=== PATIENT | female | born 1985 | race Caucasian/White ===

== ENCOUNTER 2021-03-25 13:42 | Outpatient (CLI) | payer OTHER ==
[2021-03-25] VITALS (7 sets, daily range): BP systolic 108–167; BP diastolic 57–87
[~2021-03-25] VITALS: Ht 185.4 cm; Wt 103.3 kg
[2021-03-25] MEDS ORDERED: PRENTAB9 PO (14:06)
--- NOTE | 2021-03-25 15:35 | IPNPDOC ---
Text Note Date of Service The patient was seen on 03/25/21. NOTE Labor and Delivery Triage Note: S: 35-year-old 4 para 3 at 37 weeks 5 days presents with c/o bloody show. Denies regular contractions, vaginal bleeding or LOF. Reports active movement. Patient presents as unregistered patient being seen at the center for gastroschisis. O: vss, AF no ctx Cat 1 tracing Gen: well appearing, NAD Abd: gravid, soft, nttp cx: 1 cm/long A/P: 35-year-old 4 para 3 at 37 weeks 5 days not in labor reassuring status -home with PTL precautions and FKCs. -f/u at next OB appt Michelle Eric MD VS,Litzy, I+O VSLitzy, I+O Vital Signs Date Time Temp Pulse Resp B/P (MAP) Pulse Ox O2 Delivery O2 Flow Rate FiO2 03/25/21 15:01 98.2 70 18 136/77 (96) MICHELLE ERIC MD. Mar 25, 2021 15:35
== END 2021-03-25 15:20 | disposition home or self-care (01) ==
LOC: M LDO 13:42
PROVIDERS: ATTEND Obstetrics & Gynecology
DX: O46.93 Antepartum hemorrhage, unspecified, third trimester (principal); Z3A.37 37 weeks gestation of pregnancy; O09.523 Supervision of elderly multigravida, third trimester; Z88.0 Allergy status to penicillin
CPT/HCPCS: 59025; G0378; G0463

== ENCOUNTER 2021-03-26 08:25 | Inpatient (IN) | payer OTHER ==
[2021-03-26] VITALS (25 sets, daily range): BP systolic 112–149; BP diastolic 58–110
[~2021-03-26] VITALS: Ht 185.4 cm; Wt 103.3 kg
[~2021-03-26 08:25] MED LIST: PRENTAB9 PO
[2021-03-26] MEDS ORDERED: HOME MED LIST COMPLETE! XX SCH (08:55)
[2021-03-26] MEDS ORDERED: * PENDING VANCOMYCIN ENTRY XX SCH (09:00)
[2021-03-26] MEDS ORDERED: OXYTOCIN 30 UNITS IN 0.9% NaCl 500ML IV BAG (J2590) As Ordered ONE (09:01)
[2021-03-26 09:06] LABS: HEMATOCRIT 40.4 % (36.0-47.0); HEMOGLOBIN 13.1 g/dl (12.0-15.5); MEAN CORPUSCULAR HEMOGLOBIN 28.5 pg (27.0-33.0); MEAN CORPUSCULAR HGB CONC 32.4 g/dl (32.0-36.5); PLATELET COUNT, AUTOMATED 247 10^3/uL (150-450); RED BLOOD COUNT 4.59 10^6/uL (4.00-5.40); WHITE BLOOD COUNT 10.9 10^3/uL (4.0-10.0)
[2021-03-26] MEDS ORDERED: FENTANYL 2MCG/ML ROPIVACAINE 0.2% IN 0.9% NACL 100ML IVBAG As Ordered ONE (09:22)
[2021-03-26] MEDS ORDERED: LACTATED RINGER'S 1000 ML IV STA (09:29)
[2021-03-26] MEDS ORDERED: VANCOMYCIN HCL 1,000 MG, VIAL MATE ADAPTER 1 EACH in NS 250 ML IV SCH ×2 (09:30→10:00)
[2021-03-26] MEDS ORDERED: LR 1,000 ML IV SCH (09:30)
[2021-03-26] MEDS ORDERED: VANCOMYCIN 1000MG/20ML VIAL As Ordered ONE (09:40)
[2021-03-26] MEDS ORDERED: FENTANYL/ROPIVACAINE/NACL BAG 100 ML EPIDURAL SCH (09:45)
[2021-03-26] MEDS ORDERED: ePHEDrine SULFATE 25 MG/5 ML(5MG/ML) SYRINGE IV PRN (09:45)
[2021-03-26] MEDS ORDERED: diphenhydrAMINE 50MG/ML VIAL (J1200) IV PRN (09:45)
[2021-03-26] MEDS ORDERED: REFRIGERATOR IV KEYS XX PRN (09:45)
[2021-03-26] MEDS ORDERED: ONDANSETRON 4MG/2ML VIAL IV PRN (09:45)
[2021-03-26] MEDS ORDERED: EPIDURAL/PCA KEYS XX PRN (09:45)
[2021-03-26] MEDS ORDERED: NALOXONE INJ 0.4MG/1ML VIAL (J2310 PER 1MG) IV PRN (09:45)
[2021-03-26] MEDS ORDERED: LACTATED RINGER'S 1000 ML IV PRN (09:45)
[2021-03-26] MEDS ORDERED: EPIDURAL COMMENT XX SCH (09:45)
[2021-03-26 10:48] LABS: CORD GAS HCO3 V 20.7 MEQ/L; CORD GAS O2 SAT V 79.9 %; CORD GAS PCO2 V 32.8 mmHg; CORD GAS PH V 7.417 UNITS; CORD GAS PO2 V 35.9 mmHg; CORD GAS SBC V 21.6 MEQ/L; CORD GAS TCO2 V 21.7 MEQ/L
[2021-03-26 10:50] LABS: CORD GAS ABE A -1.5; CORD GAS HCO3 A 26.2 MEQ/L; CORD GAS PCO2 A 58.7 mmHg; CORD GAS PH A 7.268 UNITS
[2021-03-26 10:51] LABS: CORD GAS PO2 A < 10.0 mmHg
[2021-03-26] MEDS ORDERED: OXYTOCIN DRIP 30 UNITS in IV 1 EA IV SCH (11:15)
[2021-03-26] MEDS ORDERED: ACETAMINOPHEN TAB 650MG DOSE (2X325MG) PO PRN (11:15)
[2021-03-26] MEDS ORDERED: ACETAMINOPHEN 500 MG TAB PO PRN (11:15)
[2021-03-26] MEDS ORDERED: DIBUCAINE 1% OINTMENT 30GM TOP PRN (11:15)
[2021-03-26] MEDS ORDERED: MEASLES,MUMPS,RUBELLA VACCINE INJ (MMR-II) (90707) SC SCH (11:15)
[2021-03-26] MEDS ORDERED: DOCUSATE SODIUM 100MG CAPSULE PO PRN (11:15)
[2021-03-26] MEDS ORDERED: IBUPROFEN 600MG TAB PO PRN (11:15)
[2021-03-26] MEDS ORDERED: METHYLERGONOVINE MALEATE 0.2 MG TAB PO PRN (11:15)
[2021-03-26] MEDS ORDERED: MOM 30ML SUSPENSION UDC PO PRN (11:15)
[2021-03-26] MEDS ORDERED: RHOGAM 300 MCG (1500 IU) INJ (J2790) IM SCH (11:15)
[2021-03-26] MEDS: IBUPROFEN 800 MG TAB PO PRN (16:55)
[2021-03-26] MEDS: PRENATAL VITAMINS CHEWABLE TABLET PO SCH (19:45)
[2021-03-27 06:00] VITALS: BP 117/73
[2021-03-27] MEDS ORDERED: ACET-683 PO (06:58)
[2021-03-27] MEDS ORDERED: IBUP80TA PO (06:58)
[2021-03-27] MEDS: PRENATAL VITAMINS CHEWABLE TABLET PO SCH (10:04)
[2021-03-27] MEDS: IBUPROFEN 800 MG TAB PO PRN (10:05)
== END 2021-03-27 10:12 | disposition home or self-care (01) | DRG 807 ==
LOC: M LDO 08:25 → M LDI 08:31 → M OBS 14:08
PROVIDERS: ADMIT Obstetrics & Gynecology; ATTEND Obstetrics & Gynecology
PROC: 10E0XZZ Delivery of Products of Conception, External Approach (ICD-10-PCS; principal; 2021-03-26)
DX: O77.0 Labor and delivery complicated by meconium in amniotic fluid (principal); Z37.0 Single live birth; Z3A.37 37 weeks gestation of pregnancy

== ENCOUNTER → 2023-03-22 | Outpatient (REF) | payer OTHER ==
[~2023-03-22] MED LIST changes: +ACET-683 PO; +IBUP80TA PO
== END ==
LOC: M LAB REF 16:05
PROVIDERS: ATTEND Nurse Practitioner Family
DX: R30.0 Dysuria (principal); N39.0 Urinary tract infection, site not specified

== ENCOUNTER → 2023-07-09 | Outpatient (REF) | payer OTHER | LOC: M LAB REF 16:34 | PROVIDERS: ATTEND Nurse Practitioner Family | DX: R30.0 Dysuria (principal) ==

== ENCOUNTER → 2023-10-25 | Outpatient (REF) | payer OTHER | LOC: M LAB REF 09:04 | PROVIDERS: ATTEND Physician Assistant | DX: R30.0 Dysuria (principal) ==

== ENCOUNTER → 2024-03-24 | Outpatient (CLI) | payer OTHER ==
[2024-03-24 15:34] LABS: HEMATOCRIT 41.8 % (36.0-47.0); HEMOGLOBIN 13.6 g/dl (12.0-15.5); MEAN CORPUSCULAR HEMOGLOBIN 28.8 pg (27.0-33.0); MEAN CORPUSCULAR HGB CONC 32.5 g/dl (32.0-36.5); MEAN CORPUSCULAR VOLUME 88.6 fl (80.0-96.0); PLATELET COUNT, AUTOMATED 235 10^3/uL (150-450); RED BLOOD COUNT 4.72 10^6/uL (4.00-5.40); WHITE BLOOD COUNT 9.1 10^3/uL (4.0-10.0)
[2024-03-24 16:38] LABS: HIV 1&2 SCREEN NEGATIVE (NEGATIVE)
[2024-03-24 16:52] LABS: HEPATITIS C VIRUS ABY INDEX < 0.02 INDEX (<0.8)
[2024-03-24 17:01] LABS: GC DNA AMPLIFICATION NEGATIVE (NEGATIVE)
== END ==
LOC: M PLALAB 13:07
PROVIDERS: ATTEND Specialist
DX: Z34.83 Encounter for supervision of other normal pregnancy, third trimester (principal)

== ENCOUNTER → 2024-04-23 | Outpatient (CLI) | payer OTHER | LOC: M PLALAB 10:25 | PROVIDERS: ATTEND Advanced Practice Midwife | DX: O09.529 Supervision of elderly multigravida, unspecified trimester (principal); Z3A.00 Weeks of gestation of pregnancy not specified ==

== ENCOUNTER → 2024-05-26 | Outpatient (CLI) | payer OTHER | LOC: M WHC 07:21 | PROVIDERS: ATTEND Advanced Practice Midwife | DX: O09.522 Supervision of elderly multigravida, second trimester (principal); Z3A.20 20 weeks gestation of pregnancy; O32.2XX0 Maternal care for transverse and oblique lie, not applicable or unspecified ==

== ENCOUNTER → 2024-06-18 | Outpatient (CLI) | payer OTHER | LOC: M WHC 13:40 | PROVIDERS: ATTEND Advanced Practice Midwife | DX: Z36.2 Encounter for other antenatal screening follow-up (principal); Z3A.23 23 weeks gestation of pregnancy ==

== ENCOUNTER → 2024-07-03 | Outpatient (CLI) | payer OTHER ==
[2024-07-03 14:27] LABS: HEMATOCRIT 38.1 % (36.0-47.0); HEMOGLOBIN 12.3 g/dl (12.0-15.5); MEAN CORPUSCULAR HEMOGLOBIN 29.3 pg (27.0-33.0); MEAN CORPUSCULAR HGB CONC 32.3 g/dl (32.0-36.5); MEAN CORPUSCULAR VOLUME 90.7 fl (80.0-96.0); PLATELET COUNT, AUTOMATED 225 10^3/uL (150-450); WHITE BLOOD COUNT 8.6 10^3/uL (4.0-10.0)
[2024-07-03 14:52] LABS: GLUCOSE CHALLENGE TEST 1 HOUR 100 MG/DL (LESS THAN 140)
[2024-07-03 15:26] LABS: HIV 1&2 SCREEN NEGATIVE (NEGATIVE)
[2024-07-03 15:29] LABS: GC DNA AMPLIFICATION NEGATIVE (NEGATIVE)
[2024-07-03 15:35] LABS: HEPATITIS C VIRUS ABY INDEX < 0.02 INDEX (<0.8)
== END ==
LOC: M PLALAB 09:09
PROVIDERS: ATTEND Obstetrics & Gynecology
DX: O09.522 Supervision of elderly multigravida, second trimester (principal); Z3A.00 Weeks of gestation of pregnancy not specified

== ENCOUNTER → 2024-09-16 | Outpatient (REF) | payer OTHER | LOC: M SFHCWAGY 12:19 | PROVIDERS: ATTEND Nurse Practitioner Family | DX: Z36.89 Encounter for other specified antenatal screening (principal); Z3A.36 36 weeks gestation of pregnancy ==

== ENCOUNTER → 2024-09-21 | Outpatient (CLI) | payer OTHER | LOC: M WHC 06:45 | PROVIDERS: ATTEND Nurse Practitioner Family | DX: O09.523 Supervision of elderly multigravida, third trimester (principal); Z3A.37 37 weeks gestation of pregnancy ==